=== PATIENT | female | born 1960 | race Caucasian/White ===

== ENCOUNTER → 2017-12-20 14:26 | Outpatient (CLI) | payer BC, SELFPAY ==
--- NOTE | 2017-12-20 14:33 | XR_ITS ---
XR hip LT 2-3V w/pelvis Ordering Physician: Vianey Cuevas Patient Age: 57 years: Female HISTORY: ITS.REASON: LT HIP PAIN Left hip pain TECHNIQUE: AP and frog-leg view left hip with AP pelvis. COMPARISON :None FINDINGS . The left hip is intact no fracture nor dislocation. Femoral head and neck appear satisfactory AP osseous pelvis is intact sacrum, iliac bone and intact. Superior and inferior ramus intact. AP view the hips satisfactory. Transitional vertebra at lumbosacral junction likely reflecting sacralization at L5 bilaterally incidentally noted. More complete fusion with sacrum on left with pseudoarthrosis on right of this transitional vertebra IMPRESSION: Left hip intact no fracture. Osseous pelvis intact Transitional vertebra lumbosacral junction noted... Likely sacralization of L5
== END ==
PROVIDERS: PCP Nurse Practitioner; Visit Provider Nurse Practitioner
DX: M25.552 Pain in left hip (principal)
CPT/HCPCS: 73502

== ENCOUNTER 2018-01-23 09:00 | Outpatient (RCR) | payer BC, SELFPAY ==
--- NOTE | 2017-12-31 14:42 | HMH.PTOPEV ---
PT Outpatient Evaluation Rehab PT Outpatient Evaluation Start: 12/31/17 13:30 Freq: Status: Active Protocol: Document 12/31/17 14:24 PHORNE (Rec: 12/31/17 14:42 PHORNE [id number]) Electronically Signed By Zana Low, PT 12/31/17 14:24 Outpatient Therapy Subjective History Subjective History Pt is 57 yowf who presents with 2-3 yr hx of left hip pain, worse x ~ 1 mo, with gradually worsening symptoms. Pt also reports intermittent numbness throughout the left LE. She reports pain is in the groin/posterior hip jt area and nowhere else. She reports pain is worse with prolonged walking or standing and better with left hip flex in sitting . She reports no significant PMH and had X-rays of left hip performed which were negative . Chief Complaint Pain Symptom Type Sharp Symptoms Relieved By Rest/Positioning Symptoms Aggravated By Standing Walking Prior Functional Limitations None Current Functional Limitations Standing Walking Symptom Description Intermittent Level of pain today (0-10) 3 Pain scale - at its worst (0-10) 5 Hip/Knee Eval Gait Observation General Gait Pattern Observation No Deviations/Normal Palpation Tenderness left Hip Palpation Findings Tenderness MMT bilateral Hip Flexion Strength Grade 5 Normal Hip Abduction Strength Grade 5 Normal Hip Adduction Strength Grade 5 Normal Hip Extension Strength Grade 5 Normal Knee Extension Strength Grade 5 Normal Knee Flexion Strength Grade 5 Normal ROM Hip ROM Reason Not Measured Within Functional Limits Knee ROM Reason Not Measured Within Functional Limits Special Tests Hip 90-90 Straight Leg Raise Test Negative Left Negative Right Sciatic Nerve Tension Test Negative Left Negative Right Hip Scouring (Quadrant) Test Negative Left Negative Right Outpatient Therapy Assessment Impairments Problems/Impairmments Palpation Tenderness Impaired Walking Impaired Standing Subjective C/O Pain Impaired Self Care/Self Management Progno
== END 2018-01-23 09:01 | disposition home or self-care (01) ==
LOC: PT 09:00
PROVIDERS: Family Provider Family Medicine; PCP Nurse Practitioner; Visit Provider Nurse Practitioner
DX: M25.552 Pain in left hip (principal)
CPT/HCPCS: 97010; 97014; 97033; 97035; 97110; 97140; 97163; G0283

== ENCOUNTER → 2023-01-01 12:54 | Outpatient (CLI) | payer OTHER, SELFPAY ==
--- NOTE | 2023-01-01 | CA_ITS ---
FINAL REPORT TECHNIQUE: Color Doppler, duplex Doppler and compression sonography of the left lower extremity deep venous systems was performed. CLINICAL HISTORY: FELL OFF LADDER 1 WK AGO, BRUISING AND PAIN IN LLE. COMPARISON: None FINDINGS: There is no evidence of deep venous thrombosis from the level of the groin to the calf. The veins are patent and compressible. IMPRESSION: No evidence of deep venous thrombosis left lower extremity. Reviewed, Interpreted and Dictated by Mundo Soni III, MD Transcribed by Racquel Li Authenticated and [facility]
== END ==
PROVIDERS: PCP Nurse Practitioner Family; Visit Provider Nurse Practitioner Family
DX: M79.605 Pain in left leg (principal)
CPT/HCPCS: 93971